=== PATIENT | male | born 1995 | race Caucasian/White ===

== ENCOUNTER 2017-01-18 18:37 | Emergency (ER) | payer OTHER ==
[~2017-01-18] VITALS: Ht 185.4 cm; Wt 79.5 kg
[2017-01-18 18:38] VITALS: BP 155/80
[2017-01-18] MEDS ORDERED: NORCO 5/325MG TABLET (BULK FOR ED) PO ONE (20:00)
[2017-01-18] MEDS ORDERED: BACITRACIN OINT 30GM TOP ONE (20:00)
[2017-01-18] MEDS ORDERED: NORCOTAB PO (20:06)
[2017-01-18] MEDS ORDERED: BACI500O8 TOP (20:06)
[2017-01-18] MEDS ORDERED: POLYSPORIN TOPICAL OINTMENT 15GM As Ordered ONE (20:08)
== END 2017-01-18 20:31 | disposition home or self-care (01) ==
LOC: M ED 18:37
DX: M79.641 Pain in right hand (principal); T23.201A Burn of second degree of right hand, unspecified site, initial encounter; T31.0 Burns involving less than 10% of body surface; X11.8XXA Contact with other hot tap-water, initial encounter; Y92.099 Unspecified place in other non-institutional residence as the place of occurrence of the external cause; Y93.9 Activity, unspecified; Y99.9 Unspecified external cause status

== ENCOUNTER → 2018-12-16 | Outpatient (CLI) | payer OTHER ==
[~2018-12-16] MED LIST: BACI500O8 TOP; HYDR-3715 PO
--- NOTE | 2018-12-16 21:14 | REP ---
CHEST, TWO VIEWS: Two views of the chest are performed. Patchy infiltrate is seen in the left lower lobe. Right lung is clear. Heart is normal in size. There are no other acute findings. IMPRESSION: Patchy left lower lobe infiltrate. Electronically Signed by Armando Peña MD 12/18/2018 09:14 P
== END ==
LOC: M LRY 19:49
PROVIDERS: ATTEND Physician Assistant Medical
DX: R91.8 Other nonspecific abnormal finding of lung field (principal); R05 Cough
CPT/HCPCS: 71046; G0463

== ENCOUNTER → 2021-09-18 | Outpatient (REF) | LOC: M PLAIMG 15:46 | PROVIDERS: ATTEND Internal Medicine | DX: R06.02 Shortness of breath (principal) ==

== ENCOUNTER → 2023-09-23 | Outpatient (CLI) | payer OTHER | LOC: M SLEEP 20:00 | PROVIDERS: ATTEND Internal Medicine | DX: R06.83 Snoring (principal) ==